=== PATIENT | female | born 1980 | race Caucasian/White ===

== ENCOUNTER 2022-08-07 08:52 | Emergency (ER) | payer BC ==
[~2022-08-07] VITALS: Ht 170.2 cm; Wt 86.0 kg
[2022-08-07 09:42] LABS: BASOPHILS # (AUTO) 0.1 X10'3 (0-0.2); EOSINOPHILS # (AUTO) 0.1 X10'3 (0-0.9); EOSINOPHILS % (AUTO) 1.4 % (0-6); HEMATOCRIT 28.5 % (35.0-45.0); HEMOGLOBIN 9.2 g/dl (12.0-16.0); LYMPHOCYTES # (AUTO) 2.1 X10'3 (1.1-4.8); LYMPHOCYTES % (AUTO) 21.9 % (21-51); MEAN CORPUSCULAR HEMOGLOBIN 21.5 PG (27.0-31.0); MEAN CORPUSCULAR HGB CONC 32.2 g/dL (33.0-36.5); MEAN CORPUSCULAR VOLUME 66.8 FL (78-98); MEAN PLATELET VOLUME 8.1 FL (7.4-10.4); MONOCYTES # (AUTO) 0.8 X10'3 (0-0.9); MONOCYTES % (AUTO) 7.8 % (2-12); NEUTROPHILS # (AUTO) 6.6 X10'3 (1.8-7.7); NEUTROPHILS % (AUTO) 67.9 % (42-75); PLATELET COUNT 294 X10'3 (140-440); RED BLOOD COUNT 4.27 X10'6 (4.20-5.60); RED CELL DISTRIBUTION WIDTH 16.8 % (11.5-14.5); WHITE BLOOD COUNT 9.7 X10'3 (4.5-11.0)
[2022-08-07 10:01] LABS: PLATELET ESTIMATE NORMAL
[2022-08-07 10:02] LABS: ANISOCYTOSIS 1+; MICROCYTOSIS 2+; POLYCHROMASIA FEW
[2022-08-07 10:04] LABS: ALANINE AMINOTRANSFERASE 22 U/L (12-78); ALBUMIN 3.7 G/DL (3.4-5.0); ALBUMIN/GLOBULIN RATIO 0.9 (1.1-1.5); ALKALINE PHOSPHATASE 75 IU/L (46-116); ANION GAP 9 (8-16); ASPARTATE AMINO TRANSFERASE 21 U/L (10-37); BILIRUBIN,TOTAL 0.5 MG/DL (0.1-1.0); BLOOD UREA NITROGEN 8 MG/DL (7-18); BUN/CREATININE RATIO 10.4 (6.6-38.0); CALCIUM 9.1 MG/DL (8.5-10.1); CHLORIDE 102 MMOL/L (99-107); CREATININE 0.77 MG/DL (0.40-0.90); GLUCOSE 108 MG/DL (70-104); POTASSIUM 3.4 MMOL/L (3.5-5.1); SODIUM 138 MMOL/L (135-145); TOTAL CARBON DIOXIDE 27.3 MMOL/L (24-32); eGFR 83 ML/MIN
[2022-08-07] MEDS ORDERED: iohexol 350MG/ML 100ml bottle IV ONE (10:12)
[2022-08-07] MEDS ORDERED: apixaban 5mg tablet PO STA (11:06)
[2022-08-07] MEDS ORDERED: PRED20TA PO (11:12)
[2022-08-07] MEDS ORDERED: AMOX-117 PO (11:12)
[2022-08-07] MEDS ORDERED: APIX5TAB3 PO ×2 (11:12)
[2022-08-07] MEDS ORDERED: ALBU6.7H14 INH (11:12)
[2022-08-07 11:44] VITALS: BP 123/87
== END 2022-08-07 12:04 ==
LOC: ER 08:52
DX: I82.90 Acute embolism and thrombosis of unspecified vein (principal); R07.81 Pleurodynia; R06.02 Shortness of breath; Z72.89 Other problems related to lifestyle; Z79.2 Long term (current) use of antibiotics; Z79.899 Other long term (current) drug therapy
CPT/HCPCS: 36415; 71046; 71275; 80053; 83880; 84484; 85008; 85025; 93005; 93971; 99285; J3490; Q9967